=== PATIENT | female | born 1935 | race Caucasian/White ===

== ENCOUNTER 2020-06-09 | Outpatient (REF) | payer MEDICARE, SELFPAY ==
[2020-06-09 15:01] LABS: INTERNATIONAL NORM RATIO 3.9 (0.9-1.1); Prothrombin Time 46.7 SEC (10.8-13.0)
[2020-06-09 15:09] LABS: Anion Gap 14 (12-20); Blood Urea Nitrogen 45 mg/dL (9-16); Calcium 9.1 mg/dL (8.4-10.2); Carbon Dioxide 25 mmol/L (22-29); Chloride 101 mmol/L (96-108); Estimated Glomerular Filt Rate 30; Glucose Random 124 mg/dL (60-115); Potassium 5.2 mmol/l (3.3-5.1); Sodium 135 mmol/L (135-145)
== END 2020-06-09 00:01 | disposition home or self-care (01) ==
LOC: HO.LNP
PROVIDERS: Visit Provider Internal Medicine
DX: N18.30 Chronic kidney disease, stage 3 unspecified (principal); I48.20 Chronic atrial fibrillation, unspecified
CPT/HCPCS: 80048; 85610

== ENCOUNTER 2020-06-25 | Outpatient (REF) | payer MEDICARE, SELFPAY ==
[2020-06-25 14:29] LABS: Anion Gap 14 (12-20); Blood Urea Nitrogen 24 mg/dL (9-16); Carbon Dioxide 27 mmol/L (22-29); Chloride 103 mmol/L (96-108); Estimated Glomerular Filt Rate 33; Glucose Random 82 mg/dL (60-115); Potassium 4.4 mmol/L (3.3-5.1); Sodium 140 mmol/L (135-145)
== END 2020-06-25 00:01 | disposition home or self-care (01) ==
LOC: HO.HMGCLNP
PROVIDERS: Referring Provider Internal Medicine Cardiovascular Disease; Visit Provider Internal Medicine
DX: I50.9 Heart failure, unspecified (principal)
CPT/HCPCS: 80048

== ENCOUNTER 2020-07-05 10:27 | Outpatient (REF) | payer MEDICARE, SELFPAY ==
[2020-07-05 11:12] LABS: Anion Gap 15 (12-20); Blood Urea Nitrogen 17 mg/dL (9-16); Calcium 8.7 mg/dL (8.4-10.2); Carbon Dioxide 27 mmol/L (22-29); Chloride 105 mmol/L (96-108); Estimated Glomerular Filt Rate 49; Glucose Random 89 mg/dL (60-115); Sodium 142 mmol/L (135-145)
== END 2020-07-05 10:28 | disposition home or self-care (01) ==
LOC: HO.LNP 10:27
PROVIDERS: Visit Provider Internal Medicine Cardiovascular Disease
DX: I48.20 Chronic atrial fibrillation, unspecified (principal)
CPT/HCPCS: 80048